=== PATIENT | male | born 1970 | race Two or more races ===

== ENCOUNTER 2025-07-18 19:26 | Emergency (ER) | payer BC, SELFPAY ==
[2025-07-18 19:27] VITALS: BMI 29.6
[2025-07-18 20:01] VITALS: BP 144/90; PULSE 72; RESP 20; TEMP 36.9; O2SAT 95
--- NOTE | 2025-07-18 20:14 | XR_ITS ---
Examination: CT abdomen and pelvis without contrast. Coronal 3-D reconstructions. Sagittal 2-D reconstructions. Date and time of exam:July 18, 20002023 hrs. Indications: Right lower abdominal pain right flank pain today Comparison: June 01, 2024 CTDI: vol (mGy): 9.81 DLP: (mGycm): 677 Technique: Axial images of the abdomen have been obtained, 3 mm slice thickness Intravenous contrast material has not been administered. Low dose protocols were performed. One or more of the following dose reduction techniques were used; automated exposure control, adjustment of the mA and/or KV according to patient size, use of iterative reconstruction technique. Findings: No focal liver or splenic lesions. Contracted gallbladder No pancreatic or adrenal mass 2 mm 1 mm left renal calculus, no hydronephrosis or ureteral calculi Normal appendix No bowel No significant prostatomegaly No bladder mass or bladder calculi Impression: Nonobstructing left renal calculi No hydronephrosis or ureteral calculi
[2025-07-18 20:59] LABS: Collection Type, Urine Clean Catch; Squamous Epithelial Cell,Urine 0 /hpf (0-5)
[2025-07-18 21:02] LABS: Basophils # (Auto) 0.1 Thou/mm3 (0.0-0.2); Basophils % (Auto) 1 % (0-2.5); Eosinophils # (Auto) 0.2 Thou/mm3 (0.0-0.5); Eosinophils % (Auto) 3 % (0-10); Hematocrit 46.4 % (41.0-53.0); Hemoglobin 16.1 g/dL (13.5-16.0); Immature Granulocytes Auto 0.03 Thou/mm3 (0.00-0.00); Lymphocytes # (Auto) 2.0 Thou/mm3 (1.0-4.8); Lymphocytes % (Auto) 27 % (10-50); Mean Corpuscular HGB Conc 34.7 g/dl (31.0-37.0); Mean Corpuscular Hemoglobin 31.0 pg (25.0-35.0); Mean Corpuscular Volume 89 fL (80-100); Monocytes # (Auto) 0.8 Thou/mm3 (0.0-0.8); Monocytes % (Auto) 10 % (0-12); Neutrophils # (Auto) 4.5 Thou/mm3 (1.8-7.7); Neutrophils % (Auto) 59 % (37-80); Nucleated Red Blood Cell # 0.00 Thou/mm3 (0.00-0.00); Nucleated Red Blood Cell % 0 /100 WBC (0); Platelet Count 151 Thou/mm3 (140-440); RDW Standard Deviation 41.4 fL (35.1-43.9); Red Blood Count 5.19 Miln/mm3 (4.50-5.90); White Blood Count 7.7 Thou/mm3 (3.8-10.6)
[2025-07-18 21:07] LABS: Bilirubin,Urine Negative (Negative); Blood,Urine Negative (Negative); Clarity,Urine Clear (Clear/Hazy); Color,Urine Lt-Yellow (Lt Yel-Yel); Glucose, Urine 4+ (Negative); Ketones,Urine Negative (Negative); Leukocyte Esterase,Urine Negative (Negative); Nitrite,Urine Negative (Negative); PH,Urine 6.5 (5.0-7.0); Protein,Urine Negative (Neg - Trace); RBC,Urine 1 /hpf (0-3); Specific Gravity,Urine 1.031 (1.001-1.035); Urobilinogen,Urine Negative mg/dL (0.0-1.0); WBC,Urine < 1 /hpf (0-5)
[2025-07-18 21:32] LABS: Alanine Aminotransferase 56 U/L (10-49); Albumin, Serum 4.3 gm/dL (3.5-5.0); Albumin/Globulin Ratio 2.4 (1.2-2.2); Alkaline Phosphatase 55 U/L (46-116); Anion Gap 12 (7-16); Aspartate Amino Transferase 30 U/L (0-34); BUN/Creatinine Ratio 9 Ratio (12-20); Bilirubin,Total 0.5 mg/dL (0.3-1.2); Blood Urea Nitrogen 15 mg/dL (9-23); Calcium 9.6 mg/dL (8.3-10.6); Calcium (Corrected) 9.6 mg/dL (8.5-10.1); Carbon Dioxide 25.8 mMol/L (20.0-31.0); Chloride 102 mMol/L (98-107); Creatinine (Component) 1.6 mg/dL (0.6-1.3); Estimated Creatinine Clearance 66.5 mL/min (>60); Globulin 1.8 gm/dL (2.3-3.5); Glucose 128 mg/dL (74-106); Lipase 57 U/L (12-53); Osmolality,Calculated 282 (275-295); Potassium 4.2 mMol/L (3.4-5.1); Sodium 140 mMol/L (136-145); Total Protein 6.1 gm/dL (5.7-8.2); eGFR 50 See Note
--- NOTE | 2025-07-18 22:12 | PD.EDRME ---
Rapid Medical Screening Exam E Arrival date/time: 07/18/25 19:26 Chief Complaint: Abdominal Pain Time Seen by Provider: 07/18/25 19:32 Vital signs: Vital Signs Temperature 98.5 F 07/18/25 20:01 Pulse Rate 72 07/18/25 20:01 Respiratory Rate 20 07/18/25 20:01 Blood Pressure 144/90 H 07/18/25 20:01 Pulse Oximetry (%) 95 07/18/25 20:01 Oxygen Delivery Method Room Air 07/18/25 20:01
--- NOTE | 2025-07-18 22:17 | PD.EDRME ---
Rapid Medical Screening Exam RME Arrival date/time: 07/18/25 19:26 This is a case of 55-year-old male with no medical history came into the emergency room due to right-sided abdominal pain radiating to the right flank with nausea vomiting for 3 days worsening of the pain thus patient decided to start consult here in the emergency room Chief Complaint: Abdominal Pain Time Seen by Provider: 07/18/25 19:32 Vital signs: Vital Signs Temperature 98.5 F 07/18/25 20:01 Pulse Rate 72 07/18/25 20:01 Respiratory Rate 20 07/18/25 20:01 Blood Pressure 144/90 H 07/18/25 20:01 Pulse Oximetry (%) 95 07/18/25 20:01 Oxygen Delivery Method Room Air 07/18/25 20:01
--- NOTE | 2025-07-18 23:03 | PD.EDABDPN ---
ED Abdominal Pain RME/HPI General Chief Complaint: Abdominal Pain Stated complaint: RIGHT SIDE ABD PAIN Time seen by provider: 07/18/25 19:32 Arrival date/time: 07/18/25 19:26 RME / HPI RME / HPI narrative: 07/18/25 19:26 This is a case of 55-year-old male with no medical history came into the emergency room due to right-sided abdominal pain radiating to the right flank with nausea vomiting for 3 days worsening of the pain thus patient decided to start consult here in the emergency room DR. SWIFT MAIN ED EVALUATION: 55 y/o male with Hx of HTN. Hypercholesterolema, and Type II DM presents to ED c/o RUQ abdominal pain x 1 day. Pain exacerbated with deep breaths. Denies any vomiting. Related Data Previous Rx's ?Medication ?Instructions ?Recorded ketorolac 10 mg tablet 10 mg PO Q8H #14 tabs 06/01/24 ondansetron 4 mg disintegrating 4 mg PO Q8H #14 tabs 06/01/24 tablet tamsulosin 0.4 mg capsule (Flomax) 0.4 mg PO Q24H #30 caps 06/01/24 dicyclomine 20 mg tablet 20 mg PO QID PRN abdominal pain 07/18/25 #20 tabs Allergies Allergy/AdvReac Type Severity Reaction Status Date / Time No Known Allergies Allergy Verified 07/18/25 19:27 Review of Systems Review of Systems Systems Reviewed: All systems reviewed, normal except as documented Past Medical History Past Medical History CARDIAC: Positive Hypercholesterolemia and Hypertension ENDOCRINE: Positive Diabetes Mellitus Type 2 Social History SMOKING STATUS: Never smoker ED Exam Narrative Physical exam: Generally patient is alert and in no obvious distress, heart regular rate and rhythm, lungs auscultation equal bilaterally, musculoskeletal exam no costovertebral angle tenderness, abdomen soft bowel sounds present nondistended right upper quadrant abdominal tenderness with a negative Hubbard sign. No rebound. Course Quality Measures none Orders Category Date Time Status CT abdomen pelvis wo con Stat Exams 07/18/25 20:14 Completed Amylase Stat Lab 07/18/25 21:39 Ordered CBC Stat Lab 07/18/25 20:39 Completed Comprehensive Metabolic Panel Stat Lab 07/18/25 20:39 Completed Lipase Stat Lab 07/18/25 20:39 Completed Urinalysis Stat Lab 07/18/25 20:50 Completed Dicyclomine Inj [Bentyl Inj] Med 07/18/25 23:18 Discontinued 20 mg IM X1 ONE Vital Signs Vital signs: Vital Signs Temperature 98.5 F 07/18/25 20:01 Pulse Rate 72 07/18/25 20:01 Respiratory Rate 20 07/18/25 20:01 Blood Pressure 144/90 H 07/18/25 20:01 Pulse Oximetry (%) 95 07/18/25 20:01 Oxygen Delivery Method Room Air 07/18/25 20:01 Abdominal Pain MDM MDM Narrative MDM Narrative:: Scribe Attestation: I, Pricila Tran, am scribing for and in the presence of Dr. Swift. Provider Notation: Although this document has been carefully reviewed, there may still be some phonetic and other typographical errors. These errors are purely grammatical due to imperfections in the software program and should not be construed in any way to compromise the substance of the patient's medical care during this visit. Differential diagnosis: Bowel spasm cholelithiasis cholecystitis, nonspecific abdominal pain, kidney stone, UTI I interpreted all labs. There is no leukocytosis. No fever. Urine is not infected. CT scan done of the abdomen pelvis with IV contrast showed no evidence of acute disease process. Patient will receive Bentyl 20 mg IM. Bentyl as prescribed. Follow-up with his doctor for further treatment and evaluation. Return to ER as needed or if condition worsens. LFTs were normal. Patient data External records reviewed:: [facility] previous records (Reviewed prior ED records from 06/01/24. Patient was seen for Flank pain.) Clinical information provided by:: patient Social determinants that could affect healthcare access:: none Patient has the following chronic illnesses:: Hypercholesterolemia, Hypertension, Diabetes Mellitus Type 2 How is presenting disease/condition affected by chronic disease/condition?: exacerbated by Evaluation data The following diagnostics were reviewed and interpreted by me:: lab results and radiology exam(s) Lab and/or radiology exams considered but not ordered:: None Interpretation Summary: RADIOLOGY Abdomen/Pelvis CT: Findings: No focal liver or splenic lesions. Contracted gallbladder No pancreatic or adrenal mass 2 mm 1 mm left renal calculus, no hydronephrosis or ureteral calculi Normal appendix No bowel No significant prostatomegaly No bladder mass or bladder calculi Impression: Nonobstructing left renal calculi No hydronephrosis or ureteral calculi Medications / Prescriptions Medications or Prescriptions considered but not ordered:: None Medication administrations:: Medication Administration History Discontinued Medications Dicyclomine HCl (Dicyclomine Inj 10 Mg/Ml 2ml Vial) 20 mg IM X1 ONE Stop: 07/18/25 23:19 See above if any Consultations Consultation(s) initiated? (list below): No Diagnosis Differential diagnosis abdominal pain: abdominal pain, acute appendicitis, calculus of kidney, constipation, diverticulitis, gastroenteritis, pancreatitis and small bowel obstruction Most likely diagnosis given after review of the tests above:: none Admission Indicated Admission indicated?: not indicated Explain why admission is indicated or not indicated:: Patient does not meet admission criteria Admission Request Was there a request for admission?: No Disposition Plan Disposition Plan: Discharge Discharge Attestation Discharge Attestation: The patient and all family members were given an opportunity to ask questions and understood the discharge instructions. Discharge instructions specifically effects, indications for sooner follow up or return to the emergency department, and the expected course of current diagnosis. Patient condition: Stable Discharge Plan Plan Patient Disposition: HOME (Self Care) Prescriptions/Referrals Prescriptions/Med Rec: New dicyclomine 20 mg tablet 20 mg PO QID PRN (Reason: abdominal pain) Qty: 20 0RF No Action ketorolac 10 mg tablet 10 mg PO Q8H Qty: 14 0RF Rx Instructions: maximum total duration of 5 days from all oral, intranasal, or parenteral formulations tamsulosin [Flomax] 0.4 mg capsule 0.4 mg PO Q24H Qty: 30 0RF ondansetron 4 mg tablet,disintegrating 4 mg PO Q8H Qty: 14 0RF Referrals: No Primary/Family,Physician [Primary Care Provider] - In 1 week Problem List Clinical Impression: Abdominal pain Patient/Caregiver Discharge Instructions Education Materials: Abdominal Pain Additional Instructions: Bentyl as prescribed. Avoid hot spicy greasy fatty foods. Follow-up with your doctor. Return to ER as needed or if condition worsens. Print Language: Greenlandic Stand Alone Forms: Ann Award Info., Patient Portal Info Letter
[2025-07-18 23:04] VITALS: BP 122/85; PULSE 67; RESP 18; TEMP 36.9; O2SAT 98
[2025-07-18] MEDS: DICYCLOMINE INJ 10 MG/ML 2ML VIAL 20 MG IM (23:30)
[2025-07-18 23:44] VITALS: BP 137/84; PULSE 56; RESP 16; TEMP 36.5; O2SAT 96
[2025-07-19 08:58] LABS: Amylase 77 U/L (30-118)
== END 2025-07-18 23:47 | disposition home or self-care (01) ==
PROVIDERS: Nurse Practitioner Family; Emergency Provider Emergency Medicine
DX: R10.9 Unspecified abdominal pain (principal); R11.2 Nausea with vomiting, unspecified
CPT/HCPCS: 36415; 74176; 80053; 81001; 82150; 83690; 85025; 96372; 99283; J0500